=== PATIENT | male | born 1965 ===

== ENCOUNTER 2018-11-09 12:35 | Inpatient (IN) ==
[2018-11-09] MEDS ORDERED: VANCOMYCIN INJ 1,000 MG in SODIUM CHLORIDE 0.9% 250 ML IV ONE (13:22)
[2018-11-09] MEDS ORDERED: MORPHINE 4 MG/1 ML VIAL IV PRN ×2 (13:24→15:43)
[2018-11-09 13:36] LABS: Basophils % 0.3 % (0.0-0.8); Eosinophils # 0.3 10*3/uL (0.0-0.87); Eosinophils % 1.9 % (0.00-10.9); Hematocrit 32.9 VOL% (42.0-52.0); Hemoglobin 11.1 GM/DL (14.0-18.0); Immature Granulocytes % 0.6 %; Immature Granulocytes Absolute 0.08 #; Lymphocytes % 13.7 % (21.2-54.2); Mean Corpuscular HGB Conc 33.7 GM/DL (32-36); Mean Corpuscular Hemoglobin 28 PG (27-34); Mean Corpuscular Volume 82.9 FL (87-102); Mean Platelet Volume 9.6 FL (9.6-12.0); Monocytes # 1.3 10*3/uL (0.11-0.8); Monocytes % 9.4 % (1.7-12.7); Neutrophils # 10.6 10*3/uL (1.4-7.4); Neutrophils % 74.1 % (38.7-73.9); Platelet Count 286 T/CUMM (130-400); Red Blood Count 3.97 MC/CUMM (3.8-5.5); Red Cell Distribution Width 12.5 % (9.3-17.3); White Blood Count 14.2 T/CUMM (4-12)
[2018-11-09 14:01] LABS: Calcium 8.5 MG/DL (8.5-10.1); Osmolality,Calculated 276.7 MOS/KG (273-304); Potassium 3.8 MMOL/L (3.5-5.1)
[2018-11-09] MEDS ORDERED: ACETAMINOPHEN 325 MG TABLET PO PRN ×2 (15:40→16:22)
[2018-11-09] MEDS ORDERED: BISACODYL 5 MG TABLET PO PRN (15:40)
[2018-11-09] MEDS ORDERED: ONDANSETRON 4 MG/2 ML VIAL IV PRN (15:40)
[2018-11-09] MEDS ORDERED: ALBUTEROL/IPRATROPIUM 3 ML NEB RESP TX PRN (15:40)
[2018-11-09] MEDS ORDERED: KETOROLAC 10 MG TABLET PO PRN (15:40)
[2018-11-09] MEDS ORDERED: GLUCAGON 1 MG VIAL IM PRN (15:44)
[2018-11-09] MEDS ORDERED: DEXTROSE 50% 25 GM/50 ML SYRINGE IV PRN (15:44)
[2018-11-09] MEDS: PIPERACILLIN/TAZOBACTAM 3,375 MG in SODIUM CHLORIDE 0.9% 100 ML IV SCH ×2 (16:40→22:06)
[2018-11-09] MEDS ORDERED: INSULIN LISPRO 100 UNIT/ML SUBCUT SCH (17:00)
[2018-11-09] MEDS: INSULIN LISPRO 100 UNIT/ML SUBCUT SCH (17:06)
[2018-11-09] MEDS: PANTOPRAZOLE 40 MG TABLET PO SCH (17:07)
[2018-11-09] MEDS: LACTATED RINGERS 1,000 ML IV SCH (17:07)
[2018-11-09] MEDS: BISACODYL 5 MG TABLET PO SCH (19:10)
[2018-11-09] MEDS: VANCOMYCIN INJ 1,500 MG in SODIUM CHLORIDE 0.9% 500 ML IV SCH (20:36)
[2018-11-09] MEDS: DOCUSATE SODIUM 100 MG CAPSULE PO SCH (20:36)
[2018-11-09] MEDS: GABAPENTIN 300 MG CAPSULE PO SCH (20:36)
[2018-11-09] MEDS: FAMOTIDINE 20 MG TABLET PO SCH (20:36)
[2018-11-09] MEDS: SIMVASTATIN 20 MG TABLET PO SCH (20:36)
[2018-11-09] MEDS: MULTIVITAMIN (BEROCCA) TABLET PO SCH (20:36)
[2018-11-09] MEDS ORDERED: INSULIN GLARGINE 100 UNIT/ML SUBCUT SCH ×2 (21:00)
[2018-11-10] MEDS: PIPERACILLIN/TAZOBACTAM 3,375 MG in SODIUM CHLORIDE 0.9% 100 ML IV SCH ×2 (05:10→15:56)
[2018-11-10 05:19] LABS: Basophils % 0.4 % (0.0-0.8); Eosinophils # 0.2 10*3/uL (0.0-0.87); Eosinophils % 1.7 % (0.00-10.9); Hematocrit 33.1 VOL% (42.0-52.0); Hemoglobin 11.1 GM/DL (14.0-18.0); Immature Granulocytes % 1.1 %; Immature Granulocytes Absolute 0.12 #; Lymphocytes # 1.8 10*3/uL (1.4-4.0); Lymphocytes % 16.2 % (21.2-54.2); Mean Corpuscular HGB Conc 33.5 GM/DL (32-36); Mean Corpuscular Hemoglobin 28 PG (27-34); Mean Corpuscular Volume 83.6 FL (87-102); Mean Platelet Volume 9.6 FL (9.6-12.0); Monocytes # 1.1 10*3/uL (0.11-0.8); Monocytes % 9.9 % (1.7-12.7); Neutrophils # 7.8 10*3/uL (1.4-7.4); Neutrophils % 70.7 % (38.7-73.9); Platelet Count 272 T/CUMM (130-400); Red Blood Count 3.96 MC/CUMM (3.8-5.5); Red Cell Distribution Width 12.1 % (9.3-17.3)
[2018-11-10 05:49] LABS: Calcium 8.4 MG/DL (8.5-10.1); Osmolality,Calculated 279.5 MOS/KG (273-304)
[2018-11-10] MEDS ORDERED: DEXTROSE 50% 25 GM/50 ML SYRINGE IV PRN (09:11)
[2018-11-10] MEDS: HYDROmorphone 2 MG/1 ML VIAL IV PRN ×4 (09:15→09:35)
[2018-11-10] MEDS ORDERED: ONDANSETRON 4 MG/2 ML VIAL IV PRN (09:19)
[2018-11-10] MEDS ORDERED: MEPERIDINE 25 MG/1 ML VIAL IV PRN (09:19)
[2018-11-10] MEDS: INSULIN LISPRO 100 UNIT/ML SUBCUT SCH ×3 (10:55→18:02)
[2018-11-10] MEDS: MULTIVITAMIN (BEROCCA) TABLET PO SCH ×2 (11:11→21:34)
[2018-11-10] MEDS: LISINOPRIL 20 MG TABLET PO SCH (11:11)
[2018-11-10] MEDS: GABAPENTIN 300 MG CAPSULE PO SCH ×3 (11:11→21:34)
[2018-11-10] MEDS: amLODIPine 5 MG TABLET PO SCH (11:11)
[2018-11-10] MEDS: DOCUSATE SODIUM 100 MG CAPSULE PO SCH ×2 (11:11→21:34)
[2018-11-10] MEDS: PANTOPRAZOLE 40 MG TABLET PO SCH (11:12)
[2018-11-10] MEDS: VANCOMYCIN INJ 1,500 MG in SODIUM CHLORIDE 0.9% 500 ML IV SCH ×2 (11:12→21:30)
[2018-11-10] MEDS: LACTATED RINGERS 1,000 ML IV SCH ×2 (11:17→19:51)
[2018-11-10] MEDS: BISACODYL 5 MG TABLET PO SCH (18:02)
[2018-11-10] MEDS: FAMOTIDINE 20 MG TABLET PO SCH (21:33)
[2018-11-10] MEDS: SIMVASTATIN 20 MG TABLET PO SCH (21:34)
[2018-11-11] MEDS: PIPERACILLIN/TAZOBACTAM 3,375 MG in SODIUM CHLORIDE 0.9% 100 ML IV SCH ×3 (00:45→15:41)
[2018-11-11] MEDS: PANTOPRAZOLE 40 MG TABLET PO SCH (07:59)
[2018-11-11] MEDS: DOCUSATE SODIUM 100 MG CAPSULE PO SCH ×2 (07:59→21:55)
[2018-11-11] MEDS: GABAPENTIN 300 MG CAPSULE PO SCH ×3 (07:59→21:55)
[2018-11-11] MEDS: MULTIVITAMIN (BEROCCA) TABLET PO SCH ×2 (07:59→21:55)
[2018-11-11] MEDS: LISINOPRIL 20 MG TABLET PO SCH (07:59)
[2018-11-11] MEDS: amLODIPine 5 MG TABLET PO SCH (07:59)
[2018-11-11] MEDS: INSULIN LISPRO 100 UNIT/ML SUBCUT SCH ×3 (08:36→17:35)
[2018-11-11] MEDS: VANCOMYCIN INJ 1,500 MG in SODIUM CHLORIDE 0.9% 500 ML IV SCH (12:25)
[2018-11-11] MEDS: LACTATED RINGERS 1,000 ML IV SCH ×2 (15:41→19:47)
[2018-11-11] MEDS: BISACODYL 5 MG TABLET PO SCH (18:30)
[2018-11-11] MEDS: SIMVASTATIN 20 MG TABLET PO SCH (21:55)
[2018-11-11] MEDS: FAMOTIDINE 20 MG TABLET PO SCH (21:55)
[2018-11-12] MEDS: VANCOMYCIN INJ 1,500 MG in SODIUM CHLORIDE 0.9% 500 ML IV SCH (00:09)
[2018-11-12] MEDS: PIPERACILLIN/TAZOBACTAM 3,375 MG in SODIUM CHLORIDE 0.9% 100 ML IV SCH ×2 (02:37→09:05)
[2018-11-12 06:13] LABS: Basophils % 0.3 % (0.0-0.8); Eosinophils # 0.3 10*3/uL (0.0-0.87); Eosinophils % 2.8 % (0.00-10.9); Hematocrit 32.2 VOL% (42.0-52.0); Hemoglobin 10.4 GM/DL (14.0-18.0); Immature Granulocytes % 0.6 %; Immature Granulocytes Absolute 0.06 #; Lymphocytes # 1.6 10*3/uL (1.4-4.0); Lymphocytes % 16.4 % (21.2-54.2); Mean Corpuscular HGB Conc 32.3 GM/DL (32-36); Mean Corpuscular Hemoglobin 27 PG (27-34); Mean Corpuscular Volume 84.7 FL (87-102); Mean Platelet Volume 9.8 FL (9.6-12.0); Monocytes % 10.7 % (1.7-12.7); Neutrophils # 6.8 10*3/uL (1.4-7.4); Neutrophils % 69.2 % (38.7-73.9); Platelet Count 310 T/CUMM (130-400); Red Cell Distribution Width 12.8 % (9.3-17.3); White Blood Count 9.8 T/CUMM (4-12)
[2018-11-12] MEDS: LACTATED RINGERS 1,000 ML IV SCH (07:41)
[2018-11-12] MEDS: GABAPENTIN 300 MG CAPSULE PO SCH ×2 (09:03→15:40)
[2018-11-12] MEDS: MULTIVITAMIN (BEROCCA) TABLET PO SCH (09:03)
[2018-11-12] MEDS: INSULIN LISPRO 100 UNIT/ML SUBCUT SCH ×3 (09:03→16:35)
[2018-11-12] MEDS: amLODIPine 5 MG TABLET PO SCH (09:03)
[2018-11-12] MEDS: DOCUSATE SODIUM 100 MG CAPSULE PO SCH (09:03)
[2018-11-12] MEDS: LISINOPRIL 20 MG TABLET PO SCH (09:03)
[2018-11-12] MEDS: PANTOPRAZOLE 40 MG TABLET PO SCH (09:05)
[2018-11-12] MEDS ORDERED: SODIUM HYPOCHLORITE 0.25% IRRIG 473 ML BOTTLE TOP SCH (11:30)
[2018-11-12] MEDS ORDERED: CHLORHEXIDINE 4% SOLN 118 ML BOTTLE TOP SCH (12:30)
[2018-11-12 12:44] VITALS: BP 167/83
[2018-11-12] MEDS ORDERED: VANCOMYCIN INJ 1,500 MG in SODIUM CHLORIDE 0.9% 500 ML IV SCH (19:30)
== END 2018-11-12 14:45 | disposition home or self-care (01) | DRG 240 ==
LOC: N.3E 12:35
PROVIDERS: ADMIT Surgery; ATTEND Surgery